=== PATIENT | male | born 1960 | race Caucasian/White ===

== ENCOUNTER 2024-08-13 14:49 | Inpatient (IN) | payer BC ==
--- NOTE | 2024-08-13 15:34 | ED ---
Abdominal Pain HPI - General Chief Complaint: Abdominal Pain Stated Complaint: Abd pain,Vomiting Time Seen by Provider: 08/13/24 15:31 Source: patient, family (), RN notes reviewed Mode of arrival: ambulatory Limitations: no limitations - History of Present Illness Initial Comments: 64-year-old male accompanied by his presented to the ER for evaluation of abdominal pain and distention. reports his abdomen has been distended since 08-09-2024. She states she brought home food around 8 PM for him to eat and he did not complete his full meal. Since then patient has not eaten a full meal. reports abdomen has been progressively appearing larger day by day. Patient admits to nausea, vomiting, diarrhea and hiccups. Denies flatulence. He states these come and go with no known triggers or alleviating factors. He denies any coffee-ground emesis, hematochezia, melena or hematic emesis. Patient denies any fevers but does admit to mild chills. He has not taken anything for pain at this time. He is currently rating his pain a 1 out of 10. He admits to a "double hernia surgery" in the inguinal region many years ago. No other abdominal surgeries. No urinary complaints. No other complaints at this time. - Related Data Home Medications Medication Instructions Recorded Confirmed No Known Home Medications 08/13/24 08/13/24 Allergies Allergy/AdvReac Type Severity Reaction Status Date / Time ibuprofen [From Motrin] AdvReac Nausea & Verified 08/13/24 16:31 Vomiting Review of Systems ROS Statement: Those systems with pertinent positive or pertinent negative responses have been documented in the HPI. ROS Other: All systems not noted in ROS Statement are negative. Past Medical History Past Medical History: No Reported History History of Any Multi-Drug Resistant Organisms: None Reported Past Surgical History: Hernia Repair, Joint Replacement, Orthopedic Surgery Past Psychological History: No Psychological Hx Reported Smoking Status: Current every day smoker Past Alcohol Use History: None Reported Past Drug Use History: None Reported General Exam Limitations: no limitations General appearance: alert, in no apparent distress Respiratory exam: Present: normal lung sounds bilaterally. Absent: respiratory distress, wheezes, rales, rhonchi, stridor Cardiovascular Exam: Present: regular rate, normal rhythm, normal heart sounds. Absent: systolic murmur, diastolic murmur, rubs, gallop, clicks GI/Abdominal exam: Present: soft, tenderness (mild epigastric), hyperactive bowel sounds (tinkling) Neurological exam: Present: alert, oriented X3, CN II-XII intact Skin exam: Present: warm, dry, intact, normal color. Absent: rash Course Vital Signs 08/13/24 14:57 Temperature 97.3 F L Pulse Rate 98 Respiratory 24 Rate Blood Pressure 160/80 O2 Sat by Pulse 97 Oximetry - Reevaluation(s) Reevaluation #1: 08/13/24 18:[address] Hilario he evaluated patient at bedside. He will proceed to take patient to the OR for intervention. He advised against NG tube placement at this time. Medical Decision Making - Medical Decision Making Was pt. sent in by a medical professional or institution (, PA, VENDOR MANAGEMENT ASSOCIATE, urgent care, hospital, or fci...) When possible be specific @ -No Did you speak to anyone other than the patient for history (EMS, parent, family, police, friend...)? What history was obtained from this source @ -Patient's , at bedside, aiding in HPI and past medical history. Did you review nursing and triage notes (agree or disagree)? Why? @ -I reviewed and agree with nursing and triage notes Were old charts reviewed (outside hosp., previous admission, EMS record, old EKG, old radiological studies, urgent care reports/EKG's, fci records)? Report findings @ -No old charts were reviewed Differential Diagnosis (chest pain, altered mental status, abdominal pain women, abdominal pain men, vaginal bleeding, weakness, fever, dyspnea, syncope, headache, dizziness, GI bleed, back pain, seizure, CVA, palpatations, mental health, musculoskeletal)? @ -Differential Abdominal Pain Men: Appendicitis, cholecystitis, diverticulosis, ischemic bowel, pancreatitis, hepatitis, UTI, gastroenteritis, AAA, incarcerated hernia, bowel obstruction, constipation, inflammatory bowel, hepatitis, peptic ulcer disease, splenic infarction, perforated viscus, testicular torsion, this is not meant to be an all-inclusive list EKG interpreted by me (3pts min.). @ -As above X-rays interpreted by me (1pt min.). @ -None done CT interpreted by me (1pt min.). @ -CT abdomen pelvis showing abnormal circumferential wall thickening with some inflammatory changes involving the sigmoid colon. There is a sinus tract/abscess identified. This results in a partial colonic obstruction with upstream large and small bowel dilation. Dilated appendix without surrounding inflammatory changes. U/S interpreted by me (1pt. min.). @ -None done What testing was considered but not performed or refused? (CT, X-rays, U/S, labs)? Why? @ -None What meds were considered but not given or refused? Why? @ -None Did you discuss the management of the patient with other professionals (professionals i.e. , PA, VENDOR MANAGEMENT ASSOCIATE, lab, RT, psych nurse, social service worker, ceramic restorer, teacher, welfare officer, family preservation caseworker)? Give summary @ -Yes, case discussed with Dr. Hilario. He evaluated patient in the emergency department and will take patient to the OR for further evaluation and treatment. Was smoking cessation discussed for >3mins.? @ -No Was critical care preformed (if so, how long)? @ -No Were there social determinants of health that impacted care today? How? (Homelessness, low income, unemployed, alcoholism, drug addiction, transportation, low edu. Level, literacy, decrease access to med. care, group home, rehab)? @ -No Was there de-escalation of care discussed even if they declined (Discuss DNR or withdrawal of care, Hospice)? DNR status @ -No What co-morbidities impacted this encounter? (DM, HTN, Smoking, COPD, CAD, Cancer, CVA, ARF, Chemo, Hep., AIDS, mental health diagnosis, sleep apnea, morbid obesity)? @ -None Was patient admitted / discharged? Hospital course, mention meds given and route, prescriptions, significant lab abnormalities, going to OR and other pertinent info. @ -Admitted. 64-year-old male presented to the ER for evaluation of abdominal pain and nausea. Upon rooming, history and physical exam completed. Vitals within acceptable limits. There is hyperactive tinkling bowel sounds noted on exam. Mild epigastric abdominal tenderness with no rebound or guarding. Ab domen is mildly distended. Laboratory studies showed a leukocytosis of 13.8 with a left shift. Lactic 3.4. Urinalysis with trace protein concerning of dehydration. CT abdomen pelvis findings suggesting partial colonic obstruction. Patient given symptomatic control in the ER with IV fluids, Reglan and Pepcid. Laboratory studies and CT findings were discussed with on-call general surgery, Dr. Hilario. He personally evaluated patient at bedside in the emergency department and plans to take patient to the OR for surgical intervention. He advised against NG tube placement at this time. Patient admitted in stable condition. Case discussed with ED attending, Dr. Selby. Undiagnosed new problem with uncertain prognosis? @ -No Drug Therapy requiring intensive monitoring for toxicity (Heparin, Nitro, Insulin, Cardizem)? @ -No Were any procedures done? @ -No Diagnosis/symptom? @ -Bowel obstruction Acute, or Chronic, or Acute on Chronic? @ -Acute Uncomplicated (without systemic symptoms) or Complicated (systemic symptoms)? @ -Complicated Side effects of treatment? @ -No Exacerbation, Progression, or Severe Exacerbation? @ -No Poses a threat to life or bodily function? How? (Chest pain, [place], [place], pneumonia, PE, COPD, DKA, ARF, appy, cholecystitis, CVA, Diverticulitis, Homicidal, Suicidal, threat to staff... and all critical care pts) @ -Yes can lead to bowel perforation - Lab Data Result diagrams: 08/13/24 15:50 08/13/24 15:50 Lab Results 08/13/24 08/13/24 08/13/24 Range/Units 15:50 15:50 15:50 WBC 13.8 H (3.8-10.6) k/uL RBC 5.64 (4.30-5.90) m/uL Hgb 16.3 (13.0-17.5) gm/dL Hct 49.8 (39.0-53.0) % MCV 88.3 (80.0-100.0) fL MCH 28.9 (25.0-35.0) pg MCHC 32.8 (31.0-37.0) g/dL RDW 14.4 (11.5-15.5) % Plt Count 372 (150-450) k/uL MPV 8.5 Neutrophils % 76 % Lymphocytes % 13 % Monocytes % 9 % Eosinophils % 1 % Basophils % 0 % Neutrophils # 10.5 H (1.3-7.7) k/uL Lymphocytes # 1.7 (1.0-4.8) k/uL Monocytes # 1.3 H (0-1.0) k/uL Eosinophils # 0.1 (0-0.7) k/uL Basophils # 0.0 (0-0.2) k/uL Sodium 135 L (137-145) mmol/L Potassium 3.9 (3.5-5.1) mmol/L Chloride 100 (98-107) mmol/L Carbon Dioxide 21 L (22-30) mmol/L Anion Gap 14 mmol/L BUN 57 H (9-20) mg/dL Creatinine 1.08 (0.66-1.25) mg/dL Est GFR (CKD-EPI)AfAm 83 (>60 ml/min/1.73 sqM) Est GFR (CKD-EPI)NonAf 72 (>60 ml/min/1.73 sqM) Glucose 138 H (74-99) mg/dL Plasma Lactic Acid Yazan (0.7-2.0) mmol/L Calcium 9.8 (8.4-10.2) mg/dL Total Bilirubin 1.3 (0.2-1.3) mg/dL AST 21 (17-59) U/L ALT 22 (4-49) U/L Alkaline Phosphatase 119 (38-126) U/L Total Protein 7.8 (6.3-8.2) g/dL Albumin 4.7 (3.5-5.0) g/dL Amylase 30 (30-110) U/L Lipase 38 (23-300) U/L Urine Color Yellow Urine Appearance Clear (Clear) Urine pH 5.5 (5.0-8.0) Ur Specific [place] 1.034 (1.001-1.035) Urine Protein Trace H (Negative) Urine Glucose (UA) Negative (Negative) Urine Ketones Negative (Negative) Urine Blood Negative (Negative) Urine Nitrite Negative (Negative) Urine Bilirubin Negative (Negative) Urine Urobilinogen 2.0 (<2.0) mg/dL Ur Leukocyte Esterase Negative (Negative) 08/13/24 Range/Units 15:50 WBC (3.8-10.6) k/uL RBC (4.30-5.90) m/uL Hgb (13.0-17.5) gm/dL Hct (39.0-53.0) % MCV (80.0-100.0) fL MCH (25.0-35.0) pg MCHC (31.0-37.0) g/dL RDW (11.5-15.5) % Plt Count (150-450) k/uL MPV Neutrophils % % Lymphocytes % % Monocytes % % Eosinophils % % Basophils % % Neutrophils # (1.3-7.7) k/uL Lymphocytes # (1.0-4.8) k/uL Monocytes # (0-1.0) k/uL Eosinophils # (0-0.7) k/uL Basophils # (0-0.2) k/uL Sodium (137-145) mmol/L Potassium (3.5-5.1) mmol/L Chloride (98-107) mmol/L Carbon Dioxide (22-30) mmol/L Anion Gap mmol/L BUN (9-20) mg/dL Creatinine (0.66-1.25) mg/dL Est GFR (CKD-EPI)AfAm (>60 ml/min/1.73 sqM) Est GFR (CKD-EPI)NonAf (>60 ml/min/1.73 sqM) Glucose (74-99) mg/dL Plasma Lactic Acid Yazan 3.4 H* (0.7-2.0) mmol/L Calcium (8.4-10.2) mg/dL Total Bilirubin (0.2-1.3) mg/dL AST (17-59) U/L ALT (4-49) U/L Alkaline Phosphatase (38-126) U/L Total Protein (6.3-8.2) g/dL Albumin (3.5-5.0) g/dL Amylase (30-110) U/L Lipase (23-300) U/L Urine Color Urine Appearance (Clear) Urine pH (5.0-8.0) Ur Specific [place] (1.001-1.035) Urine Protein (Negative) Urine Glucose (UA) (Negative) Urine Ketones (Negative) Urine Blood (Negative) Urine Nitrite (Negative) Urine Bilirubin (Negative) Urine Urobilinogen (<2.0) mg/dL Ur Leukocyte Esterase (Negative) - EKG Data -: EKG Interpreted by Me EKG Comments: EKG taken at 16: 01 showing a sinus rhythm with occasional PAC. No ST segment elevations or depressions. No T wave inversions. Ventricular rate 90, IN interval 176, QRS duration 92, QT/QTc 367/415. - Radiology Data Radiology results: report reviewed, image reviewed Disposition Clinical Impression: Bowel obstruction Disposition: ADMITTED IP TO THIS HOSP Condition: Stable Referrals: None,Stated [Primary Care Provider] - 1-2 days Time of Disposition: 18:16
[2024-08-13] MEDS: METOCLOPRAMIDE 5 MG/ML 2 ML VIAL IVP STA (15:47)
[2024-08-13] MEDS: SODIUM CHLORIDE 0.9% 1,000 ML IV ONE (15:47)
[2024-08-13] MEDS: FAMOTIDINE 20 MG/2 ML VIAL IV STA (15:47)
[2024-08-13 15:58] LABS: Basophils % (A) 0 %; Eosinophils # (A) 0.1 k/uL (0-0.7); Eosinophils % (A) 1 %; HCT 49.8 % (39.0-53.0); HGB 16.3 gm/dL (13.0-17.5); Lymphocytes # (A) 1.7 k/uL (1.0-4.8); Lymphocytes % (A) 13 %; MCH 28.9 pg (25.0-35.0); MCHC 32.8 g/dL (31.0-37.0); MCV 88.3 fL (80.0-100.0); Mean Platelet Volume 8.5; Monocytes # (A) 1.3 k/uL (0-1.0); Monocytes % (A) 9 %; Neutrophils # (A) 10.5 k/uL (1.3-7.7); Neutrophils % (A) 76 %; Platelet Count 372 k/uL (150-450); RBC 5.64 m/uL (4.30-5.90); RDW 14.4 % (11.5-15.5); WBC 13.8 k/uL (3.8-10.6)
[2024-08-13 16:07] LABS: ALT 22 U/L (4-49); AST 21 U/L (17-59); African American GFR (CKD) 83 (>60 ml/min/1.73 sqM); Albumin 4.7 g/dL (3.5-5.0); Alkaline Phosphatase 119 U/L (38-126); Amylase 30 U/L (30-110); Anion Gap 14 mmol/L; Blood Urea Nitrogen 57 mg/dL (9-20); Calcium 9.8 mg/dL (8.4-10.2); Carbon Dioxide 21 mmol/L (22-30); Chloride 100 mmol/L (98-107); Glucose 138 mg/dL (74-99); Lipase 38 U/L (23-300); Non-African American GFR(CKD) 72 (>60 ml/min/1.73 sqM); Potassium 3.9 mmol/L (3.5-5.1); Sodium 135 mmol/L (137-145); Total Bilirubin 1.3 mg/dL (0.2-1.3); Total Protein 7.8 g/dL (6.3-8.2)
[2024-08-13 16:29] LABS: Appearance,Urine Clear (Clear); Bilirubin,Urine Negative (Negative); Blood,Urine Negative (Negative); Color,Urine Yellow; Glucose,Urine (UA) Negative (Negative); Ketones,Urine Negative (Negative); Leukocyte Esterase,Urine Negative (Negative); Nitrite,Urine Negative (Negative); PH, Urine 5.5 (5.0-8.0); Protein,Urine Trace (Negative); Specific Gravity,Urine 1.034 (1.001-1.035)
--- NOTE | 2024-08-13 17:04 | CT ---
EXAMINATION TYPE: CT abdomen pelvis w con CT DLP: 910.9 mGycm, Automated exposure control for dose reduction was used. DATE OF EXAM: 08/13/2024 4:48 PM COMPARISON: None CLINICAL INDICATION:Male, 64 years old with history of abd pain and distention; Abdominal pain more t oward LLQ. Pt sent in by PCP to r/o bowel obstruction. Pt has not been eating for a few days. TECHNIQUE: Standard CT of the abdomen and pelvis following the administration of 100 cc of Isovue 3 00 IV contrast material. Coronal and sagittal reformats were performed. FINDINGS: LOWER CHEST: Minimal right lower lobe dependent subsegmental atelectasis. ABDOMEN LIVER: Unremarkable GALLBLADDER AND BILE DUCTS: Unremarkable. PANCREAS: Unremarkable. SPLEEN: Unremarkable. ADRENAL GLANDS: Unremarkable. KIDNEYS AND URETERS: No evidence of hydronephrosis or renal calculus. The kidneys enhance symmetrical ly. A couple right renal lower pole exophytic small cysts. Left renal exophytic 2.4 cm cyst. Contrast is demonstrated within both collecting systems on the delayed phase. PELVIS BLADDER: Incompletely distended but grossly unremarkable. REPRODUCTIVE: Unremarkable. ABDOMEN & PELVIS STOMACH AND BOWEL: Stomach and duodenum are unremarkable. Abnormal circumferential wall thickening of the sigmoid colon measuring up to 1.5 cm. This extends along the length of approximately 8.5 cm. The re is some surrounding stranding changes with a tract/abscess measuring up to 1.1 cm in diameter and abutting of the sigmoid colon measuring 3.0 x 1.1 cm (series 201, image 67). Scattered distal colonic diverticulosis. Dilated appendix measuring up to 1 cm without surrounding inflammatory changes. Mild ly dilated distal fluid-filled small bowel measuring up to 3.2 cm. Some gas and stool is identified w ithin the rectum. PERITONEUM: No evidence of pneumoperitoneum or free fluid. VASCULATURE: Mild atherosclerotic calcifications are present throughout the abdominal aorta and its b ranches. No evidence of aortic aneurysm. Left-sided pelvic phleboliths. MUSCULOSKELETAL: No acute osseous abnormalities. Degenerative changes of the left SI joint with anter ior bridging. LYMPH NODES: No evidence for lymphadenopathy. SOFT TISSUE/ABDOMINAL WALL: Unremarkable IMPRESSION: 1. Abnormal circumferential wall thickening with some inflammatory changes involving the sigmoid col on. There is a sinus tract/abscess identified. This results in partial colonic obstruction with upstr eam large and small bowel dilatation. Etiologies include infectious/inflammatory process versus malig rome. Consider direct visualization. 2. Dilated appendix without surrounding inflammatory changes to suggest acute appendicitis. Correlat e clinically. [facility], , 08/13/2024 5:01 PM
[2024-08-13] MEDS ORDERED: NALOXONE 0.4 MG/ML 1 ML VIAL IV PRN (18:10)
[2024-08-13] MEDS ORDERED: ONDANSETRON 4 MG/2 ML VIAL IVP PRN (18:10)
[2024-08-13] MEDS ORDERED: HYDROmorphone 1 MG/ML 1 ML SYRINGE IVP PRN (18:10)
[2024-08-13] MEDS: SODIUM CHLORIDE 0.9% 1,000 ML IV SCH (18:22)
--- NOTE | 2024-08-13 18:27 | P.GSHP ---
History of Present Illness H&P Date: 08/13/24 Chief Complaint: Colon obstruction 64-year-old male comes to the hospital complaining of abdominal bloating, crampy abdominal pain, and decreased bowel function since Sunday. Says it began rather acutely. Prior to this does not give a history of significant constipation issues. Patient had episodes of vomiting and some diarrhea. Still passing a very small amount of flatus at times he says. White blood cell count elevated at 13. Lactic acid elevated as well. CAT scan abdomen pelvis obtained and was reviewed. Patient has proximal colonic distention with obstructive site in the sigmoid colon. Bowel wall thickening at that location is present with a possible pericolonic fistulization process occurring. The patient's proximal colon concerning for possible pneumatosis involving the cecum and ascending colon. Luminal diameter approximately 9.5 cm. Patient describing pain is diffuse in nature. Has audible bowel sounds in the room. No history of similar events. No history of previous colonoscopy. Family history of colon cancer in his father. Denies rectal bleeding. - Review of Systems Comment: The patient denies any acute changes in vision or hearing, no dysphagia or odynophagia, no chest pain or shortness of breath, no dysuria or hematuria, no headache, no runny nose, no rectal bleeding or melena, no unexplained weight loss Past Medical History Past Medical History: No Reported History History of Any Multi-Drug Resistant Organisms: None Reported Past Surgical History: Hernia Repair, Joint Replacement, Orthopedic Surgery Past Psychological History: No Psychological Hx Reported Smoking Status: Current every day smoker Past Alcohol Use History: None Reported Past Drug Use History: None Reported Medications and Allergies Home Medications Medication Instructions Recorded Confirmed Type No Known Home Medications 08/13/24 08/13/24 History Allergies Allergy/AdvReac Type Severity Reaction Status Date / Time ibuprofen [From Motrin] AdvReac Nausea & Verified 08/13/24 16:31 Vomiting Surgical - Exam Vital Signs Temp Pulse Resp BP Pulse Ox 97.3 F L 98 24 160/80 97 08/13/24 14:57 08/13/24 14:57 08/13/24 14:57 08/13/24 14:57 08/13/24 14:57 Physical exam: General: Well-developed, well-nourished HEENT: Normocephalic, sclerae nonicteric Abdomen: Mild to moderate diffuse tenderness, tympany, diffuse distention Extremities: No edema Neuro: Alert and oriented Results - Labs 08/13/24 15:50 08/13/24 15:50 Abnormal Lab Results - Last 24 Hours (Table) 08/13/24 08/13/24 08/13/24 Range/Units 15:50 15:50 15:50 WBC 13.8 H (3.8-10.6) k/uL Neutrophils # 10.5 H (1.3-7.7) k/uL Monocytes # 1.3 H (0-1.0) k/uL Sodium 135 L (137-145) mmol/L Carbon Dioxide 21 L (22-30) mmol/L BUN 57 H (9-20) mg/dL Glucose 138 H (74-99) mg/dL Plasma Lactic Acid Yazan (0.7-2.0) mmol/L Urine Protein Trace H (Negative) 08/13/24 Range/Units 15:50 WBC (3.8-10.6) k/uL Neutrophils # (1.3-7.7) k/uL Monocytes # (0-1.0) k/uL Sodium (137-145) mmol/L Carbon Dioxide (22-30) mmol/L BUN (9-20) mg/dL Glucose (74-99) mg/dL Plasma Lactic Acid Yazan 3.4 H* (0.7-2.0) mmol/L Urine Protein (Negative) Diabetes panel 08/13/24 Range/Units 15:50 Sodium 135 L (137-145) mmol/L Potassium 3.9 (3.5-5.1) mmol/L Chloride 100 (98-107) mmol/L Carbon Dioxide 21 L (22-30) mmol/L BUN 57 H (9-20) mg/dL Creatinine 1.08 (0.66-1.25) mg/dL Glucose 138 H (74-99) mg/dL Calcium 9.8 (8.4-10.2) mg/dL AST 21 (17-59) U/L ALT 22 (4-49) U/L Alkaline Phosphatase 119 (38-126) U/L Total Protein 7.8 (6.3-8.2) g/dL Albumin 4.7 (3.5-5.0) g/dL Calcium panel 08/13/24 Range/Units 15:50 Calcium 9.8 (8.4-10.2) mg/dL Albumin 4.7 (3.5-5.0) g/dL Pituitary panel 08/13/24 Range/Units 15:50 Sodium 135 L (137-145) mmol/L Potassium 3.9 (3.5-5.1) mmol/L Chloride 100 (98-107) mmol/L Carbon Dioxide 21 L (22-30) mmol/L BUN 57 H (9-20) mg/dL Creatinine 1.08 (0.66-1.25) mg/dL Glucose 138 H (74-99) mg/dL Calcium 9.8 (8.4-10.2) mg/dL Adrenal panel 08/13/24 Range/Units 15:50 Sodium 135 L (137-145) mmol/L Potassium 3.9 (3.5-5.1) mmol/L Chloride 100 (98-107) mmol/L Carbon Dioxide 21 L (22-30) mmol/L BUN 57 H (9-20) mg/dL Creatinine 1.08 (0.66-1.25) mg/dL Glucose 138 H (74-99) mg/dL Calcium 9.8 (8.4-10.2) mg/dL Total Bilirubin 1.3 (0.2-1.3) mg/dL AST 21 (17-59) U/L ALT 22 (4-49) U/L Alkaline Phosphatase 119 (38-126) U/L Total Protein 7.8 (6.3-8.2) g/dL Albumin 4.7 (3.5-5.0) g/dL Assessment and Plan (1) Colonic obstruction Narrative/Plan: 64-year-old male with colon obstruction on CAT scan. Right sided colon worrisome for pneumatosis. Clinical scenario reviewed in detail. Films were shown to the patient and his . Discussed options of surgical exploration versus conservative management with IV antibiotics and bowel rest. Given the CAT scan findings favor surgery at this time. Risks of perforation without surgery discussed. Patient is agreeable to proceed with surgery. Will proceed with exploratory laparotomy, possible bowel resection, possible ostomy. Discussed with patient that the site of obstruction may be left alone for now depending on the operative findings. Need for ostomy reviewed in detail. We discussed both ileostomy with mucous fistula and colostomy as potential outcomes. Risks of bleeding, infection, sepsis, abscess, hernia, need for additional surgeries, respiratory and cardiac complications, aspiration. Patient expresses understanding and wishes to proceed. Status: Acute Code(s): K56.609 - UNSP INTESTNL OBST, UNSP TO PARTIAL VERSUS COMPLETE OBST SNOMED Code(s): 92093646
[2024-08-13] MEDS: IV FLUID CONTINUATION 1,000 ML IV ONE ×2 (18:54→21:27)
[2024-08-13] MEDS ORDERED: MIDAZOLAM 2 MG/2 ML VIAL ONE (19:13)
[2024-08-13] MEDS ORDERED: ROCURONIUM 10 MG/ML (5 ML VIAL) IV ONE (19:13)
[2024-08-13] MEDS ORDERED: LIDOCAINE 4% LTA KIT (4 ML) TOPICAL ONE (19:13)
[2024-08-13] MEDS ORDERED: GLYCOPYRROLATE 0.2 MG/ML 2 ML VIAL ONE (19:13)
[2024-08-13] MEDS ORDERED: PROPOFOL 10 MG/ML 20 ML VIAL IV ONE (19:13)
[2024-08-13] MEDS ORDERED: fentaNYL (PF) 50 MCG/ML 2 ML AMP ONE (19:13)
[2024-08-13] MEDS ORDERED: SUCCINYLCHOLINE CHLORIDE 200 MG/10 ML VIAL IV ONE (19:13)
[2024-08-13] MEDS ORDERED: NEOSTIGMINE 1 MG/ML 10 ML VIAL ONE (19:13)
[2024-08-13] MEDS: SODIUM CHLORIDE 0.9% 100 ML with ceFAZolin 2,000 MG IV ONE (19:15)
[2024-08-13] MEDS: metroNIDAZOLE-NS PMX 500 MG in SALINE 1 100ML.BAG IVPB STA (19:48)
[2024-08-13] MEDS: LACTATED RINGERS 1,000 ML IV ONE (19:51)
[2024-08-13] MEDS ORDERED: METOCLOPRAMIDE 5 MG/ML 2 ML VIAL IVP PRN (21:08)
[2024-08-13] MEDS: LABETALOL SYRINGE 5 MG/ML (4 ML SYR) IVP STA (21:16)
--- NOTE | 2024-08-13 21:17 | P.OP ---
Date of Procedure: 08/13/24 Procedure(s) Performed: PREOPERATIVE DIAGNOSIS: Colonic obstruction POSTOPERATIVE DIAGNOSIS: Same PROCEDURE: Exploratory laparotomy, appendectomy with colonic decompression, loop colostomy SURGEON: Sulaiman EBL: 50 mL ANESTHESIA: General COMPLICATIONS: None OPERATIVE PROCEDURE: Patient place in the operative table in the supine position. The patient was placed under general anesthesia. The abdomen was prepped and draped in usual sterile fashion. A vertical incision was made around the umbilical region. The fascia was divided as well. The patient's colon was quite distended. Some of the small bowel was distended as well. Nasogastric tube was properly placed and the stomach was fully decompressed. The right colon was first addressed. There was no gross evidence of ischemic change. No definite pneumatosis was visualized. The appendix was mobilized using LigaSure. An opening was made at the proximal aspect of the appendix and a suction device was advanced into the lumen of the cecum. The majority of the air from the distended colon was milked back to this area and a large volume of diarrhea was also evacuated. The cecum ascending and transverse colon appeared viable. Attention was next directed to the site of obstruction. There was significant chronic appearing inflammatory change at that location. The colon was quite firm there and I remain concerned about the possibility of malignancy. The sigmoid colon was not mobile and adherent to the pelvic sidewall. It was decided not to proceed with any further resection of that area so that appropriate workup could take place. Instead the left colon was mobilized by incising the white line of Toldt. The colon was mobilized medially. A 20 Greek red rubber catheter was passed around the distal aspect of the descending colon. A circular opening in the left midabdomen was made and the tissues were divided using cautery. The fascia was divided vertically using electrocautery. I was able to bring the loop ostomy out through that area. The abdomen was irrigated with saline. No bleeding was seen. The midline fascia was closed using 2 separate double-stranded #1 PDS sutures. The subcutaneous layers were closed using 2-0 Vicryl sutures and the skin using abraham. The traditional X shaped bridge was placed beneath the colon and sutured to the skin using 3-0 silk sutures. The ostomy was then matured using interrupted 3-0 Vicryl sutures. A large ostomy appliance was then applied. DISPOSITION: Stable to recovery room
[2024-08-13] MEDS: hydrALAZINE HCL 20 MG/ML 1 ML VIAL IVP STA (21:26)
[2024-08-13] MEDS: HYDROmorphone 0.5 MG/0.5 ML SYRINGE IVP PRN (21:30)
[2024-08-13] MEDS: NICOTINE 21MG/24HR PATCH TRANSDERM SCH (22:35)
[2024-08-13] MEDS: ACETAMINOPHEN IV (For NPO) 1,000 MG in EMPTY BAG 1 BAG IVPB SCH (23:51)
[2024-08-13] MEDS: D5-0.45% NACL WITH KCL 20MEQ/L 1,000 ML IV SCH (23:51)
[2024-08-13] MEDS: HEPARIN SODIUM,PORCINE 5,000 UNIT/ML 1 ML VIAL SQ SCH (23:51)
[2024-08-14] MEDS ORDERED: HYDROmorphone 0.5 MG/0.5 ML SYRINGE IVP PRN (07:00)
[2024-08-14] MEDS: ALVIMOPAN 12 MG CAPSULE PO SCH (08:25)
[2024-08-14] MEDS: PIPERACILLIN-TAZOBACTAM 3.375 GM in SODIUM CHLORIDE 0.9% 100 ML IVPB SCH (08:25)
[2024-08-14 08:57] LABS: Blood Urea Nitrogen 35.7 mg/dL (9.0-27.0); Calcium 7.9 mg/dL (8.7-10.3); Carbon Dioxide 20.8 mmol/L (21.6-31.8); Chloride 106 mmol/L (96-109); Glucose 133 mg/dL (70-110); Potassium 4.3 mmol/L (3.5-5.5); Sodium 137 mmol/L (135-145)
[2024-08-14 09:14] LABS: HCT 44.5 % (39.6-50.0); HGB 14.8 g/dL (13.0-17.0); MCH 29.2 pg (27.0-32.0); MCHC 33.3 g/dL (32.0-37.0); MCV 87.9 FL (80.0-97.0); Mean Platelet Volume 11.1 FL (9.5-12.2); NRBC Per 100 WBC 0 X 10*3/uL (0.00-0.01); Platelet Count 299 X 10*3/uL (140-440); RBC 5.06 X 10*6/uL (4.40-5.60); RDW 14.8 % (11.5-14.5); WBC 5.87 X 10*3/uL (4.50-10.00)
[2024-08-14 09:51] LABS: Basophils # (M) 0.12 X 10*3/uL (0.00-0.10); Eosinophils # (M) 0 X 10*3/uL (0.04-0.35); Lymphocytes # (M) 0.82 X 10*3/uL (0.90-5.00); Monocytes # (M) 0.88 X 10*3/uL (0.20-1.00); Neutrophils # (M) 4.05 X 10*3/uL (1.80-7.70); Neutrophils % (M) 69 %
--- NOTE | 2024-08-14 13:04 | P.CONS ---
History of Present Illness - Reason for Consult Consult date: 08/14/24 Medical management - History of Present Illness History of present illness; patient is a 64-year-old gentleman no significant past medical history presented the ER because of abdominal pain and distention since Sunday. Patient stated that he was all right when on Sunday after eating dinner patient noted that his abdominal was getting bigger. Patient also complaining of abdominal pain for generalized. Patient was also losing his appetite. Patient started having nausea and vomiting. There was also episodes of diarrhea patient was passing gas. There was no complaint of any blood in the stools. There is no complaint of hematemesis. Because of abdominal pain getting progressively worse and abdomen becoming distended, patient decided to come to the ER Initial lab work done in the ER showed WBC 13.8, hemoglobin 16.3, platelet count 372, sodium 135, potassium 3.9, chloride 100, carbon 21, BUN 15, creatinine 1.08, lactate 3.4 calcium 9.8, bilirubin 1.3, AST 21, ALT 22, UA negative for infection CT abdominal pelvis done showed abnormal circumferential wall thickening with some inflammatory changes involving the sigmoid colon, there is a sinus tract/abscess identified, this results in partial colonic obstruction. Patient admitted to general surgery, patient went underwent Exploratory laparotomy, appendectomy with colonic decompression, loop colostomy. Internal medicine team were consulted for medical management REVIEW OF SYSTEMS: CONSTITUTIONAL: No fever, no malaise, no fatigue. HEENT: No recent visual problems or hearing problems. Denied any sore throat. CARDIOVASCULAR: No chest pain, orthopnea, PND, no palpitations, no syncope. PULMONARY: No shortness of breath, no cough, no hemoptysis. GASTROINTESTINAL: As mentioned above NEUROLOGICAL: No headaches, no weakness, no numbness. HEMATOLOGICAL: Denies any bleeding or petechiae. GENITOURINARY: Denies any burning micturition, frequency, or urgency. MUSCULOSKELETAL/RHEUMATOLOGICAL: Denies any joint pain, swelling, or any muscle pain. ENDOCRINE: Denies any polyuria or polydipsia. The rest of the 14-point review of systems is negative. PHYSICAL EXAMINATION: GENERAL: The patient is alert and oriented x3, not in any acute distress. Well developed, well nourished. HEENT: Pupils are round and equally reacting to light. EOMI. No scleral icterus. No conjunctival pallor. Normocephalic, atraumatic. No pharyngeal erythema. No thyromegaly. CARDIOVASCULAR: S1 and S2 present. No murmurs, rubs, or gallops. PULMONARY: Chest is clear to auscultation, no wheezing or crackles. ABDOMEN: Surgical incision seen, ostomy seen MUSCULOSKELETAL: No joint swelling or deformity. EXTREMITIES: No cyanosis, clubbing, or pedal edema. NEUROLOGICAL: Gross neurological examination did not reveal any focal deficits. SKIN: No rashes. Assessment and plan Abdominal pain Lactic acidosis Colonic obstruction Monitor vital signs Monitor CBC Monitor CMP Keep patient n.p.o. Ordered IV fluids Ordered antibiotics Ordered pain management Continue IV Zosyn Surgery took patient for Exploratory laparotomy, Exploratory laparotomy, appendectomy with colonic decompression, loop colostomy Labs and medication were reviewed.. Continue same treatment. Continue with symptomatic treatment. Resume home medication. Monitor labs and vitals. DVT a nd GI prophylaxis. Further recommendations as per clinical course of the patient Dictation was produced using [employer] dictation software. please excuse any grammatical, word or spelling errors. Past Medical History Past Medical History: No Reported History History of Any Multi-Drug Resistant Organisms: None Reported Past Surgical History: Hernia Repair, Joint Replacement, Orthopedic Surgery Past Psychological History: No Psychological Hx Reported Smoking Status: Current every day smoker Past Alcohol Use History: None Reported Past Drug Use History: None Reported Medications and Allergies Home Medications Medication Instructions Recorded Confirmed Type No Known Home Medications 08/13/24 08/13/24 History Allergies Allergy/AdvReac Type Severity Reaction Status Date / Time ibuprofen [From Motrin] AdvReac Nausea & Verified 08/13/24 19:01 Vomiting Physical Exam Vitals: Vital Signs Temp Pulse Pulse Resp BP BP Pulse Ox 08/14/24 07:07 97.4 F L 96 16 171/67 95 08/14/24 05:50 95 08/14/24 01:23 98.6 F 92 16 154/74 97 08/14/24 01:08 92 154/71 97 08/14/24 00:53 95 145/69 96 08/14/24 00:38 95 145/74 96 08/14/24 00:23 95 148/74 96 08/14/24 00:08 98 156/70 96 08/13/24 23:53 95 152/74 96 08/13/24 23:38 95 154/73 97 08/13/24 23:08 93 175/66 97 08/13/24 22:53 89 168/73 98 08/13/24 22:38 88 168/74 98 08/13/24 22:22 98.1 F 92 18 176/69 98 08/13/24 22:06 82 14 178/70 98 08/13/24 21:51 81 16 169/76 98 08/13/24 21:36 80 18 178/71 97 08/13/24 21:21 73 16 200/77 99 08/13/24 21:06 97.7 F 85 16 190/94 99 08/13/24 18:54 97.6 F 91 14 152/62 98 08/13/24 14:57 97.3 F L 98 24 160/80 97 Intake and Output 08/13/24 08/14/24 08/14/24 22:59 06:59 14:59 Intake Total 2300 Output Total 250 550 300 Balance 2050 -550 -300 Intake: IV 2300 Output: Urine 200 500 Stool 50 300 Estimated Blood Loss 50 Other: Voiding Method Indwelling Catheter Indwelling Catheter Weight 81.647 kg Results CBC & Chem 7: 08/14/24 05:22 08/14/24 05:22 Labs: Abnormal Lab Results - Last 24 Hours (Table) 08/13/24 08/13/24 08/13/24 Range/Units 15:50 15:50 15:50 WBC 13.8 H (3.8-10.6) k/uL RDW (11.5-14.5) % Neutrophils # 10.5 H (1.3-7.7) k/uL Lymphocytes # (Manual) (0.90-5.00) X 10*3/uL Monocytes # 1.3 H (0-1.0) k/uL Eosinophils # (Manual) (0.04-0.35) X 10*3/uL Basophils # (Manual) (0.00-0.10) X 10*3/uL Sodium 135 L (137-145) mmol/L Carbon Dioxide 21 L (22-30) mmol/L BUN 57 H (9-20) mg/dL BUN/Creatinine Ratio (12.00-20.00) Ratio Glucose 138 H (74-99) mg/dL Plasma Lactic Acid Yazan (0.7-2.0) mmol/L Calcium (8.7-10.3) mg/dL Urine Protein Trace H (Negative) 08/13/24 08/14/24 08/14/24 Range/Units 15:50 05:22 05:22 WBC (3.8-10.6) k/uL RDW 14.8 H (11.5-14.5) % Neutrophils # (1.3-7.7) k/uL Lymphocytes # (Manual) 0.82 L (0.90-5.00) X 10*3/uL Monocytes # (0-1.0) k/uL Eosinophils # (Manual) 0 L (0.04-0.35) X 10*3/uL Basophils # (Manual) 0.12 H (0.00-0.10) X 10*3/uL Sodium (137-145) mmol/L Carbon Dioxide 20.8 L (22-30) mmol/L BUN 35.7 H (9-20) mg/dL BUN/Creatinine Ratio 35.70 H (12.00-20.00) Ratio Glucose 133 H (74-99) mg/dL Plasma Lactic Acid Yazan 3.4 H* (0.7-2.0) mmol/L Calcium 7.9 L (8.7-10.3) mg/dL Urine Protein (Negative)
--- NOTE | 2024-08-14 13:05 | P.PN ---
Subjective Progress Note Date: 08/14/24 SURGICAL PROGRESS NOTE CHIEF COMPLAINT: Colonic obstruction HISTORY OF PRESENT ILLNESS: Postop day #1 status post exploratory laparotomy, appendectomy with colonic decompression and loop colostomy. Pain is controlled. Patient is having output from his ostomy. He denies any nausea or vomiting. Afebrile. WBC is down from 13.8-5.87. CEA 2.4 PHYSICAL EXAM: VITAL SIGNS: Reviewed. GENERAL: Well-developed in no acute distress. ABDOMEN: Soft. Mildly distended. Incisional dressing clean dry and intact. Ostomy with liquidy stool present NEUROLOGIC: Alert and oriented. Cranial nerves II through XII grossly intact. ASSESSMENT: 1. Colonic obstruction PLAN: -Advance diet to clear liquids -Continue pain management -Antibiotics added -Follow-up on pathology results -Continue IV fluids -Increase activity level -DVT prophylaxis subcu heparin Physician Tafe Teacher note has been reviewed by physician. Signing provider agrees with the documented findings, assessment, and plan of care. I have personally seen and examined the patient, reviewed the TRAVEL ACCOMMODATIONS RATER /PAs history, exam and MDM and agree with the assessment and plan as written. Based on total visit time, I have performed more than 50% of the visit. As above: Patient seems doing fairly well today. Still having stool and air through the ostomy overnight. Already sat in the chair for quite some time. Labs noted. CEA normal. Will remove Hector catheter. Continue clear liquids. If doing well advance diet tomorrow. Discharge planning for home care regarding ostomy. Objective - Vital Signs Vital signs: Vital Signs Temp 97.4 F L 08/14/24 07:07 Pulse 96 08/14/24 07:07 Resp 16 08/14/24 07:07 BP 171/67 08/14/24 07:07 Pulse Ox 95 08/14/24 07:07 FiO2 Intake & Output 08/13/24 08/14/24 08/14/24 18:59 06:59 18:59 Intake Total 100 2200 Output Total 800 300 Balance 100 1400 -300 Weight 81.647 kg 81.647 kg Intake: IV 100 2200 Output: Urine 700 Stool 50 300 Estimated Blood Loss 50 Other: Voiding Method Indwelling Catheter Indwelling Catheter - Labs CBC & Chem 7: 08/14/24 05:22 08/14/24 05:22 Labs: Abnormal Lab Results - Last 24 Hours (Table) 08/13/24 08/13/24 08/13/24 Range/Units 15:50 15:50 15:50 WBC 13.8 H (3.8-10.6) k/uL RDW (11.5-14.5) % Neutrophils # 10.5 H (1.3-7.7) k/uL Lymphocytes # (Manual) (0.90-5.00) X 10*3/uL Monocytes # 1.3 H (0-1.0) k/uL Eosinophils # (Manual) (0.04-0.35) X 10*3/uL Basophils # (Manual) (0.00-0.10) X 10*3/uL Sodium 135 L (137-145) mmol/L Carbon Dioxide 21 L (22-30) mmol/L BUN 57 H (9-20) mg/dL BUN/Creatinine Ratio (12.00-20.00) Ratio Glucose 138 H (74-99) mg/dL Plasma Lactic Acid Yazan (0.7-2.0) mmol/L Calcium (8.7-10.3) mg/dL Urine Protein Trace H (Negative) 08/13/24 08/14/24 08/14/24 Range/Units 15:50 05:22 05:22 WBC (3.8-10.6) k/uL RDW 14.8 H (11.5-14.5) % Neutrophils # (1.3-7.7) k/uL Lymphocytes # (Manual) 0.82 L (0.90-5.00) X 10*3/uL Monocytes # (0-1.0) k/uL Eosinophils # (Manual) 0 L (0.04-0.35) X 10*3/uL Basophils # (Manual) 0.12 H (0.00-0.10) X 10*3/uL Sodium (137-145) mmol/L Carbon Dioxide 20.8 L (22-30) mmol/L BUN 35.7 H (9-20) mg/dL BUN/Creatinine Ratio 35.70 H (12.00-20.00) Ratio Glucose 133 H (74-99) mg/dL Plasma Lactic Acid Yazan 3.4 H* (0.7-2.0) mmol/L Calcium 7.9 L (8.7-10.3) mg/dL Urine Protein (Negative)
[2024-08-15 08:12] LABS: ALT 13 U/L (10-49); AST 19 U/L (14-35); Albumin 3.1 g/dL (3.8-4.9); Albumin/Globulin Ratio 1.63 Ratio (1.60-3.17); Alkaline Phosphatase 82 U/L (41-126); BUN/Creat Ratio 25.38 Ratio (12.00-20.00); Blood Urea Nitrogen 20.3 mg/dL (9.0-27.0); Calcium 7.7 mg/dL (8.7-10.3); Carbon Dioxide 24.1 mmol/L (21.6-31.8); Chloride 104 mmol/L (96-109); Globulin 1.9 g/dL (1.6-3.3); Glucose 135 mg/dL (70-110); Potassium 3.9 mmol/L (3.5-5.5); Sodium 135 mmol/L (135-145); Total Bilirubin 0.5 mg/dL (0.3-1.2)
--- NOTE | 2024-08-15 13:33 | P.PN ---
Subjective Progress Note Date: 08/15/24 patient is a 64-year-old gentleman no significant past medical history presented the ER because of abdominal pain and distention since Sunday. Patient stated that he was all right when on Sunday after eating dinner patient noted that his abdominal was getting bigger. Patient also complaining of abdominal pain for generalized. Patient was also losing his appetite. Patient started having nausea and vomiting. There was also episodes of diarrhea patient was passing gas. There was no complaint of any blood in the stools. There is no complaint of hematemesis. Because of abdominal pain getting progressively worse and abdomen becoming distended, patient decided to come to the ER Initial lab work done in the ER showed WBC 13.8, hemoglobin 16.3, platelet count 372, sodium 135, potassium 3.9, chloride 100, carbon 21, BUN 15, creatinine 1.08, lactate 3.4 calcium 9.8, bilirubin 1.3, AST 21, ALT 22, UA negative for infection CT abdominal pelvis done showed abnormal circumferential wall thickening with some inflammatory changes involving the sigmoid colon, there is a sinus tract/abscess identified, this results in partial colonic obstruction. Patient admitted to general surgery, patient went underwent Exploratory laparotomy, appendectomy with colonic decompression, loop colostomy. Internal medicine team were consulted for medical management 08/15. Patient seen and examined. Stated he is doing better. Denies abdominal pain. REVIEW OF SYSTEMS: CONSTITUTIONAL: No fever, no malaise,. CARDIOVASCULAR: No chest pain, no palpitations, no syncope. PULMONARY: No shortness of breath, no cough, GASTROINTESTINAL: No diarrhea, no nausea, no vomiting, no abdominal pain. NEUROLOGICAL: No headaches, no weakness, PHYSICAL EXAMINATION: GENERAL: The patient is alert and oriented x3, not in any acute distress. Well developed, well nourished. HEENT: Pupils are round and equally reacting to light. EOMI. No scleral icterus. No conjunctival pallor. Normocephalic, atraumatic. No pharyngeal erythema. No thyromegaly. CARDIOVASCULAR: S1 and S2 present. No murmurs, rubs, or gallops. PULMONARY: Chest is clear to auscultation, no wheezing or crackles. ABDOMEN: Surgical incision seen, ostomy seen MUSCULOSKELETAL: No joint swelling or deformity. EXTREMITIES: No cyanosis, clubbing, or pedal edema. NEUROLOGICAL: Gross neurological examination did not reveal any focal deficits. SKIN: No rashes. Assessment and plan Abdominal pain Lactic acidosis Colonic obstruction Monitor vital signs Monitor CBC Monitor CMP Continue IV fluids Continue IV Continue pain pain management Currently on liquid diet, advance as tolerated S/p exploratory laparotomy, Exploratory laparotomy, appendectomy with colonic decompression, loop colostomy Surgery following Labs and medication were reviewed.. Continue same treatment. Continue with symptomatic treatment. Resume home medication. Monitor labs and vitals. DVT and GI prophylaxis. Further recommendations as per clinical course of the patient Dictation was produced using [employer] dictation software. please excuse any grammatical, word or spelling errors. Objective - Vital Signs Vital signs: Vital Signs Temp 98.2 F 08/15/24 07:53 Pulse 81 08/15/24 07:53 Resp 18 08/15/24 07:53 BP 176/76 08/15/24 07:53 Pulse Ox 92 L 08/15/24 07:53 FiO2 Intake & Output 08/14/24 08/15/24 08/15/24 18:59 06:59 18:59 Output Total 1175 1650 Balance -1175 -1650 Output: Urine 575 1050 Uretheral (Hector) 425 Stool 600 600 Other: Voiding Method Indwelling Catheter Urinal Urinal # Voids 3 - Labs CBC & Chem 7: 08/14/24 05:22 08/15/24 05:51 Labs: Abnormal Lab Results - Last 24 Hours (Table) 08/15/24 Range/Units 05:51 BUN/Creatinine Ratio 25.38 H (12.00-20.00) Ratio Glucose 135 H (70-110) mg/dL Calcium 7.7 L (8.7-10.3) mg/dL Total Protein 5.0 L (6.2-8.2) g/dL Albumin 3.1 L (3.8-4.9) g/dL
[2024-08-15] MEDS ORDERED: HYDROcodone/APAP 5-325MG 1 EACH TAB PO PRN (14:50)
[2024-08-15] MEDS ORDERED: ACETAMINOPHEN TAB 325 MG TAB PO PRN (14:50)
--- NOTE | 2024-08-15 14:53 | P.PN ---
Subjective Progress Note Date: 08/15/24 SURGICAL PROGRESS NOTE CHIEF COMPLAINT: Colonic obstruction HISTORY OF PRESENT ILLNESS: Postop day #2 status post exploratory laparotomy, appendectomy with colonic decompression and loop colostomy. Patient is having output from his ostomy. He denies any nausea or vomiting. He has been up and ambulating. He has received ostomy teaching. Pain controlled afebrile. BP elevated. PHYSICAL EXAM: VITAL SIGNS: Reviewed. GENERAL: Well-developed in no acute distress. ABDOMEN: Soft. Mildly distended. Incisional dressing with a small amount of stool noted on the lower edge. Ostomy with liquidy stool present NEUROLOGIC: Alert and oriented. Cranial nerves II through XII grossly intact. ASSESSMENT: 1. Colonic obstruction PLAN: -Nursing staff to change surgical dressing change surgical dressing. -Advance diet to full liquids -Oral pain medication as needed ordered in the from of Tylenol or [place] -Continue antibiotics -Discontinue IV fluids. Hopefully this will help with hypertension as well. -Follow-up on pathology results -Encourage patient ambulate -Encourage patient to use incentive spirometer -DVT prophylaxis subcu heparin Physician Transfer Knitter note has been reviewed by physician. Signing provider agrees with the documented findings, assessment, and plan of care. I have personally seen and examined the patient, reviewed the NURSING HOME SOCIAL WORKER /PAs history, exam and MDM and agree with the assessment and plan as written. Based on total visit time, I have performed more than 50% of the visit. As above: Patient mildly distended. No nausea or vomiting. Tolerating liquids. Ostomy appliance was changed earlier today. Continue antibiotics. Continue full liquids for now. Possible discharge over the weekend if doing well. Objective - Vital Signs Vital signs: Vital Signs Temp 98.2 F 08/15/24 07:53 Pulse 81 08/15/24 07:53 Resp 18 08/15/24 07:53 BP 176/76 08/15/24 07:53 Pulse Ox 92 L 08/15/24 07:53 FiO2 Intake & Output 08/14/24 08/15/24 08/15/24 18:59 06:59 18:59 Output Total 1175 1650 400 Balance -1175 -1650 -400 Output: Urine 575 1050 250 Uretheral (Hector) 425 Stool 600 600 150 Other: Voiding Method Indwelling Catheter Urinal Urinal # Voids 3 1 - Labs CBC & Chem 7: 08/14/24 05:22 08/15/24 05:51 Labs: Abnormal Lab Results - Last 24 Hours (Table) 08/15/24 Range/Units 05:51 BUN/Creatinine Ratio 25.38 H (12.00-20.00) Ratio Glucose 135 H (70-110) mg/dL Calcium 7.7 L (8.7-10.3) mg/dL Total Protein 5.0 L (6.2-8.2) g/dL Albumin 3.1 L (3.8-4.9) g/dL
--- NOTE | 2024-08-16 08:24 | P.PN ---
Subjective Progress Note Date: 08/16/24 Patient states he feels better. He has had output from his colostomy. On exam vital signs appear stable. Abdomen is soft. Incisions clean dry intact. Colostomy is functioning. Patient will continue receive supportive care. Objective - Vital Signs Vital signs: Vital Signs Temp 98.7 F 08/16/24 07:14 Pulse 82 08/16/24 07:14 Resp 17 08/16/24 07:14 BP 173/77 08/16/24 07:14 Pulse Ox 94 L 08/16/24 07:14 FiO2 Intake & Output 08/15/24 08/16/24 08/16/24 18:59 06:59 18:59 Output Total 950 2400 300 Balance -950 -2400 -300 Output: Urine 650 1050 Stool 300 1350 300 Other: Voiding Method Urinal Urinal # Voids 1 100 - Labs CBC & Chem 7: 08/14/24 05:22 08/15/24 05:51
[2024-08-16] MEDS: LOSARTAN 25 MG TAB PO SCH (10:37)
--- NOTE | 2024-08-16 15:58 | P.PN ---
Subjective Progress Note Date: 08/16/24 patient is a 64-year-old gentleman no significant past medical history presented the ER because of abdominal pain and distention since Sunday. Patient stated that he was all right when on Sunday after eating dinner patient noted that his abdominal was getting bigger. Patient also complaining of abdominal pain for generalized. Patient was also losing his appetite. Patient started having nausea and vomiting. There was also episodes of diarrhea patient was passing gas. There was no complaint of any blood in the stools. There is no complaint of hematemesis. Because of abdominal pain getting progressively worse and abdomen becoming distended, patient decided to come to the ER Initial lab work done in the ER showed WBC 13.8, hemoglobin 16.3, platelet count 372, sodium 135, potassium 3.9, chloride 100, carbon 21, BUN 15, creatinine 1.08, lactate 3.4 calcium 9.8, bilirubin 1.3, AST 21, ALT 22, UA negative for infection CT abdominal pelvis done showed abnormal circumferential wall thickening with some inflammatory changes involving the sigmoid colon, there is a sinus tract/abscess identified, this results in partial colonic obstruction. Patient admitted to general surgery, patient went underwent Exploratory laparotomy, appendectomy with colonic decompression, loop colostomy. Internal medicine team were consulted for medical management 08/15. Patient seen and examined. Stated he is doing better. Denies abdominal pain. 08/16/2024 Patient is evaluated in follow-up on the medical floor resting in bed. Underwent teaching with a colostomy bag however he states that it was difficult for him to do the training and he feels like he would benefit more from returning home and working with home care. His ostomy bag was leaking at the bedside today. Blood pressure was elevated in the 170 systolic and he was started on a low-dose of losartan 25 mg daily. Continues on IV Zosyn. Encouraged to continue using his incentive spirometer. REVIEW OF SYSTEMS: CONSTITUTIONAL: No fever, no malaise,. CARDIOVASCULAR: No chest pain, no palpitations, no syncope. PULMONARY: No shortness of breath, no cough, GASTROINTESTINAL: No diarrhea, no nausea, no vomiting, no abdominal pain. NEUROLOGICAL: No headaches, no weakness, PHYSICAL EXAMINATION: GENERAL: The patient is alert and oriented x3, not in any acute distress. Well developed, well nourished. HEENT: Pupils are round and equally reacting to light. EOMI. No scleral icterus. No conjunctival pallor. Normocephalic, atraumatic. No pharyngeal erythema. No thyromegaly. CARDIOVASCULAR: S1 and S2 present. No murmurs, rubs, or gallops. PULMONARY: Chest is clear to auscultation, no wheezing or crackles. ABDOMEN: Surgical incision seen, ostomy seen MUSCULOSKELETAL: No joint swelling or deformity. EXTREMITIES: No cyanosis, clubbing, or pedal edema. NEUROLOGICAL: Gross neurological examination did not reveal any focal deficits. SKIN: No rashes. Assessment and plan Abdominal pain Lactic acidosis Colonic obstruction status post exploratory laparotomy appendectomy with colonic decompression and loop colostomy formation. Hypertension Chronic nicotine use Plan Continues on a full liquid diet Ostomy resource nurse following and patient needs reinforcement education regarding colostomy changes and emptying Patient was started on oral losartan 25 mg daily secondary to to increase blood pressures Monitor electrolytes and renal function Labs and medication were reviewed.. Continue same treatment. Continue with symptomatic treatment. Resume home medication. Monitor labs and vitals. DVT and GI prophylaxis. Further recommendations as per clinical course of the patient Dictation was produced using [employer] dictation software. please excuse any grammatical, word or spelling errors. The impression and plan of care has been dictated by Macy Mathur Nurse Practitioner as directed. Dr. Herman MD I have performed a history and physical examination and medical decision making of this patient, discussed the same with the dictator, and agree with the dictators assessment and plan as written, documented as a scribe. Based on total visit time, I have performed more than 50% of this visit. Objective - Vital Signs Vital signs: Vital Signs Temp 98.7 F 08/16/24 07:14 Pulse 82 08/16/24 08:15 Resp 17 08/16/24 08:15 BP 173/77 08/16/24 07:14 Pulse Ox 94 L 08/16/24 07:14 FiO2 Intake & Output 08/15/24 08/16/24 08/16/24 18:59 06:59 18:59 Output Total 950 2400 300 Balance -950 -2400 -300 Output: Urine 650 1050 Stool 300 1350 300 Other: Voiding Method Urinal Urinal Urinal # Voids 1 100 - Labs CBC & Chem 7: 08/14/24 05:22 08/15/24 05:51 Assessment and Plan Time with Patient: Less than 30
--- NOTE | 2024-08-17 11:01 | P.PN ---
Subjective Progress Note Date: 08/17/24 Patient marvin stable. He has had some output through his colostomy. On exam vital signs were stable. Abdomen soft. Status post diverting colostomy mucous fistula for colon obstruction. Patient will continue receive supportive care. Objective - Vital Signs Vital signs: Vital Signs Temp 98.3 F 08/17/24 06:57 Pulse 72 08/17/24 08:00 Resp 18 08/17/24 08:00 BP 176/75 08/17/24 06:57 Pulse Ox 97 08/17/24 06:57 FiO2 Intake & Output 08/16/24 08/17/24 08/17/24 18:59 06:59 18:59 Output Total 300 1400 Balance -300 -1400 Output: Urine 1100 Stool 300 Urine/Stool Mix 300 Other: Voiding Method Urinal Toilet Toilet Urinal Urinal - Labs CBC & Chem 7: 08/14/24 05:22 08/15/24 05:51
--- NOTE | 2024-08-17 13:33 | P.PN ---
Subjective Progress Note Date: 08/17/24 patient is a 64-year-old gentleman no significant past medical history presented the ER because of abdominal pain and distention since Sunday. Patient stated that he was all right when on Sunday after eating dinner patient noted that his abdominal was getting bigger. Patient also complaining of abdominal pain for generalized. Patient was also losing his appetite. Patient started having nausea and vomiting. There was also episodes of diarrhea patient was passing gas. There was no complaint of any blood in the stools. There is no complaint of hematemesis. Because of abdominal pain getting progressively worse and abdomen becoming distended, patient decided to come to the ER Initial lab work done in the ER showed WBC 13.8, hemoglobin 16.3, platelet count 372, sodium 135, potassium 3.9, chloride 100, carbon 21, BUN 15, creatinine 1.08, lactate 3.4 calcium 9.8, bilirubin 1.3, AST 21, ALT 22, UA negative for infection CT abdominal pelvis done showed abnormal circumferential wall thickening with some inflammatory changes involving the sigmoid colon, there is a sinus tract/abscess identified, this results in partial colonic obstruction. Patient admitted to general surgery, patient went underwent Exploratory laparotomy, appendectomy with colonic decompression, loop colostomy. Internal medicine team were consulted for medical management 08/15. Patient seen and examined. Stated he is doing better. Denies abdominal pain. 08/16/2024 Patient is evaluated in follow-up on the medical floor resting in bed. Underwent teaching with a colostomy bag however he states that it was difficult for him to do the training and he feels like he would benefit more from returning home and working with home care. His ostomy bag was leaking at the bedside today. Blood pressure was elevated in the 170 systolic and he was started on a low-dose of losartan 25 mg daily. Continues on IV Zosyn. Encouraged to continue using his incentive spirometer. 08/17/2024 Patient eval today resting in bed. His ostomy bag is leaking again out of the side. He has more formed stools today in the ostomy. And he is passing gas. Patient continues on a low-dose of losartan 25 mg daily as blood pressures have improved down to 147/74 yesterday evening. Continues on IV Zosyn. Potentially will be discharged home tomorrow if he is able to tolerate advanced diet. REVIEW OF SYSTEMS: CONSTITUTIONAL: No fever, no malaise,. CARDIOVASCULAR: No chest pain, no palpitations, no syncope. PULMONARY: No shortness of breath, no cough, GASTROINTESTINAL: No diarrhea, no nausea, no vomiting, no abdominal pain. NEUROLOGICAL: No headaches, no weakness, PHYSICAL EXAMINATION: GENERAL: The patient is alert and oriented x3, not in any acute distress. Well developed, well nourished. HEENT: Pupils are round and equally reacting to light. EOMI. No scleral icterus. No conjunctival pallor. Normocephalic, atraumatic. No pharyngeal erythema. No thyromegaly. CARDIOVASCULAR: S1 and S2 present. No murmurs, rubs, or gallops. PULMONARY: Chest is clear to auscultation, no wheezing or crackles. ABDOMEN: Surgical incision seen, ostomy seen MUSCULOSKELETAL: No joint swelling or deformity. EXTREMITIES: No cyanosis, clubbing, or pedal edema. NEUROLOGICAL: Gross neurological examination did not reveal any focal deficits. SKIN: No rashes. Assessment and plan Abdominal pain Lactic acidosis Colonic obstruction status post exploratory laparotomy appendectomy with colonic decompression and loop colostomy formation. Hypertension Chronic nicotine use Plan Continues on a full liquid diet Ostomy resource nurse following and patient needs reinforcement education regarding colostomy changes and emptying Patient was started on oral losartan 25 mg daily secondary to to increase blood pressures Monitor electrolytes and renal function Labs and medication were reviewed.. Continue same treatment. Continue with symptomatic treatment. Resume home medication. Monitor labs and vitals. DVT and GI prophylaxis. Further recommendations as per clinical course of the patient Dictation was produced using [employer] dictation software. please excuse any grammatical, word or spelling errors. The impression and plan of care has been dictated by Macy Mathur, Nurse Practitioner as directed. Dr. Herman MD I have performed a history and physical examination and medical decision making of this patient, discussed the same with the dictator, and agree with the dictators assessment and plan as written, documented as a scribe. Based on total visit time, I have performed more than 50% of this visit. Objective - Vital Signs Vital signs: Vital Signs Temp 98.3 F 08/17/24 06:57 Pulse 72 08/17/24 08:00 Resp 18 08/17/24 08:00 BP 176/75 08/17/24 06:57 Pulse Ox 97 08/17/24 06:57 FiO2 Intake & Output 08/16/24 08/17/24 08/17/24 18:59 06:59 18:59 Output Total 300 1400 Balance -300 -1400 Output: Urine 1100 Stool 300 Urine/Stool Mix 300 Other: Voiding Method Urinal Toilet Toilet Urinal Urinal - Labs CBC & Chem 7: 08/14/24 05:22 08/15/24 05:51 Assessment and Plan Time with Patient: Less than 30
[2024-08-18 07:51] VITALS: BP 163/78; PULSE 69; RESP 16; TEMP 97.8
[2024-08-18 09:28] LABS: BUN/Creat Ratio 15.29 Ratio (12.00-20.00); Blood Urea Nitrogen 10.7 mg/dL (9.0-27.0); Glucose 109 mg/dL (70-110)
[2024-08-18 09:29] LABS: Calcium 8.4 mg/dL (8.7-10.3); Chloride 102 mmol/L (96-109); Magnesium 1.8 mg/dL (1.5-2.4); Sodium 135 mmol/L (135-145)
--- NOTE | 2024-08-18 14:38 | P.DS ---
Providers Date of admission: 08/13/24 17:11 Expected date of discharge: 08/18/24 Attending physician: Bridger Hilario Consults: 08/13/24 21:08 Consult Physician Routine Consulting Provider: Emelina Coffey Consult Reason/Comments: Medical management Do you want consulting provider notified?: Yes Primary care physician: Stated None Hospital Course: Discharge diagnosis 1. Colonic obstruction status post exploratory laparotomy, appendectomy with colonic decompression, loop colostomy Hospital course 64-year-old male comes to the hospital complaining of abdominal bloating, crampy abdominal pain, and decreased bowel function. CT scan abdomen pelvis had reported proximal colonic distention and obstructive site in the sigmoid colon. 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 Luminal diameter approximately 9.5 cm. Patient is status post exploratory laparotomy, appendectomy with colonic decompression, loop colostomy. Patient tolerated surgery well. Pain is controlled. He is tolerating diet. He is afebrile. He has been up and ambulating. He is stable for discharge. Please refer to chart for any further details. 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 Signing provider agrees with the documented findings, assessment, and plan of care. Patient Condition at Discharge: Stable Plan - Discharge Summary Discharge Rx Participant: No New Discharge Prescriptions: New HYDROcodone/APAP 5-325MG [Annabella 5-325] 1 tab PO Q6HR PRN 3 Days #10 tab PRN Reason: Pain Discharge Medication List HYDROcodone/APAP 5-325MG [Annabella 5-325] 1 tab PO Q6HR PRN 3 Days #10 tab 08/18/24 [Rx] Follow up Appointment(s)/Referral(s): Bridger Hilario MD [Medical Doctor] - 1 Week None,Stated [Primary Care Provider] - 1-2 days [facility], [NON-STAFF] - 1-2 Days ([facility] will call you to schedule your in home nursing visits.) Activity/Diet/Wound Care/Special Instructions: Ostomy: last changed 08/17/24 Change every 3 to 5 days and if leaking; empty when half full; monitor for gas and burp bag as needed [facility] #[id number] 4" appliance until removal of stoma bridge; [place] barrier rings [phone], [phone]; would recommend a convex appliance when bridge is removed. Remove abdominal midline incisional dressing on August 20 Discharge/Stand Alone Forms: Area PCPs Discharge Disposition: HOME SELF-CARE
--- NOTE | 2024-08-18 23:08 | PN ---
PROGRESS NOTE DATE OF SERVICE: 08/18/2024 This 64-year-old gentleman was admitted after laparoscopy and appendectomy and chronic decompression and colostomy. He is improving significantly. No chest pain, no palpitation. PHYSICAL EXAMINATION: VITAL SIGNS: Pulse 69, blood pressure ntd, respirations 16. CHEST: Clear to auscultation. CARDIOVASCULAR SYSTEM: S1 and S2. ABDOMEN: Soft. Status post surgery. LABORATORY DATA: Noted. ASSESSMENT: 1. Status post exploratory laparotomy, appendectomy, chronic decompression, loop colostomy for chronic obstruction. 2. Hypertension. 3. History of hernia repair. RECOMMENDATIONS: Recommended to continue current management and continue symptomatic treatment. I would recommend to continue with Cozaar and closely follow with primary physician. Further recommendations to follow. MMODL / IJN: [id number] / DOUG
== END 2024-08-18 16:21 | disposition home or self-care (01) | DRG 330 ==
LOC: EC 14:49 → 4SSUR 17:11
PROVIDERS: ADMIT Surgery; ATTEND Surgery
PROC: 0DTJ0ZZ Resection of Appendix, Open Approach (ICD-10-PCS; 2024-08-13)
PROC: 0D9N00Z Drainage of Sigmoid Colon with Drainage Device, Open Approach (ICD-10-PCS; 2024-08-13)
PROC: 0D1N0Z4 Bypass Sigmoid Colon to Cutaneous, Open Approach (ICD-10-PCS; principal; 2024-08-13 18:43)
DX: K56.600 Partial intestinal obstruction, unspecified as to cause (principal); E87.20 Acidosis, unspecified; I10 Essential (primary) hypertension; K35.80 Unspecified acute appendicitis; K37 Unspecified appendicitis; F17.210 Nicotine dependence, cigarettes, uncomplicated; Z79.899 Other long term (current) drug therapy; Z80.0 Family history of malignant neoplasm of digestive organs
CPT/HCPCS: 36415; 74177; 80048; 80053; 81003; 82150; 82378; 83605; 83690; 83735; 85025; 88304; 93005; 96361; 96374; 96375; 99285

== ENCOUNTER 2024-09-16 10:48 | Day surgery (SDC) | payer BC ==
[2024-09-16] MEDS: IV FLUID CONTINUATION 1,000 ML IV ONE ×2 (11:11→13:00)
[2024-09-16] MEDS: LACTATED RINGERS 1,000 ML IV SCH (11:24)
[2024-09-16 11:28] VITALS: TEMP 97
[2024-09-16] MEDS ORDERED: PROPOFOL 10 MG/ML 20 ML VIAL IV ONE (12:34)
--- NOTE | 2024-09-16 13:00 | P.PCN ---
Date of Procedure: 09/16/24 Procedure(s) Performed: PREOPERATIVE DIAGNOSIS: Colon obstruction POSTOPERATIVE DIAGNOSIS: Colon obstruction, mild colitis, diverticulosis PROCEDURE: Colonoscopy with biopsy ANESTHESIA: MAC SURGEON: Bridger Hilario M.D. SPECIMENS: Colitis ENDOSCOPIC PROCEDURE: The patient was placed on the endoscopy table in the left decubitus position. The Olympus colonoscope was inserted into the anus and passed under direct visualization to the mid sigmoid colon. At around 20 cm there was edematous and mildly erythematous mucosa. I was unable to advance the scope more proximal than that because of tortuosity in the sigmoid. Biopsies of the area of inflammation took place. The scope was then advanced through the loop ostomy proximally to the cecum. There were no visualized abnormalities throughout the cecum ascending transverse and descending colon. The scope was then advanced into the distal lumen of the loop colostomy and I was able to advance the scope all the way to the anus. There was an area of narrowing at around 20 to 25 cm. There was edematous mucosa with erythema present. No ulcerations or tiny malignancy was seen. Biopsies of the mucosa in that area took place and were sent with the specimens obtained from the rectal approach. The patient had mild scattered diverticulosis. Digital rectal examination was normal. The patient was taken to the recovery room in stable condition per anesthesia guidelines. RECOMMENDATIONS: Findings suggest diverticulitis as the source of recent obstruction. Await biopsy results. Will discuss options of ostomy reversal with patient.
[2024-09-16 13:24] VITALS: RESP 14
[2024-09-16 13:26] VITALS: BP 161/69; PULSE 94
== END 2024-09-16 13:45 | disposition home or self-care (01) ==
LOC: ORWHC2ENDO 10:48
PROVIDERS: ATTEND Surgery
DX: K56.691 Other complete intestinal obstruction (principal); K52.9 Noninfective gastroenteritis and colitis, unspecified; K57.30 Diverticulosis of large intestine without perforation or abscess without bleeding
CPT/HCPCS: 45380; 44388; J2704; 88305